=== PATIENT | male | born 1970 | race Caucasian/White ===

== ENCOUNTER 2017-01-29 21:23 | Emergency (ER) | payer SELFPAY ==
[~2017-01-29 21:23] MED LIST: OFLO1DRO8 RIGHT EYE
[2017-01-29 21:42] VITALS: BP 154/93; PULSE 76; RESP 20; TEMP 98.7; O2SAT 93
--- NOTE | 2017-01-30 00:39 | PD ---
HPI Chief Complaint: Injury Time Seen by Provider: 00:38 Travel History International Travel<30 days: No Contact w/Intl Traveler<30days: No Traveled to known affect area: No History of Present Illness HPI 26-year-old male presents to the emergency department for complaint of injury to his right index finger. Patient states he was lifting concrete at 10 AM and has right index finger was crushed need the concrete. Patient has subsequently developed bruising underneath the nail. Patient states pain is throbbing and constant and he is unable to get relief from the fingernail pain. Patient denies other injury. Immunizations are current. Patient is not diabetic. Patient is right-handed. PFSH Past Medical History Narrative Medical Negative past medical history negative surgical history tobacco use positive nursing notes reviewed Diminished Hearing: No Influenza Vaccination: No Past Surgical History Surgical History: No Previous Surgery Social History Alcohol Use: No Tobacco Use: Yes (1 PPD) Substance Use: No Allergies-Medications (Allergen,Severity, Reaction): Coded Allergies: Lortab (Verified Allergy, Unknown, nausea, 01/29/17) Motrin (Verified Allergy, Unknown, nausea, 01/29/17) Tylenol (Verified Allergy, Unknown, nausea, 01/29/17) Ultram (Verified Allergy, Unknown, nausea, 01/29/17) Reported Meds & Prescriptions Reported Meds & Active Scripts Active No Active Prescriptions or Reported Medications Review of Systems Musculoskeletal: Positive: Pain (pain in the right index finger) Hematologic/Lymphatic: No: Easy Bruising Physical Exam Narrative Gen. well-developed well-nourished male in no acute distress no respiratory distress Extremity: Attention right index finger with subungual hematoma no deformity range of motion intact sensory exam intact capillary refill brisk and less than 2 seconds thumb apposition intact Data Data Last Documented VS Vital Signs Date Time Temp Pulse Resp B/P Pulse Ox O2 Delivery O2 Flow Rate FiO2 01/29/17 23:51 Room Air 01/29/17 21:42 98.7 76 20 154/93 93 Orders Finger (Aml2les) (01/30/17 ) [facility] Medical Decision Making Medical Screen Exam Complete: Yes Emergency Medical Condition: Yes Medical Record Reviewed: Yes Interpretation(s) right index finger xr: No acute bony injury Differential Diagnosis Subungual hematoma crush injury tuft fracture neurovascular tendon injury Narrative Course Imaging study reveals no bony abnormality; after digit was cleansed with Betadine and electrocautery trephination was performed with relief of pain associated with subungual hematoma. Patient stable for outpatient management. Diagnosis Primary Impression: Subungual hematoma of finger of right hand Qualified Code: S60.10XA - Subungual hematoma of finger of right hand, initial encounter Departure Forms: Tests/Procedures, Work Release Special Instructions: no use right hand/no work x 2 days Additional Instructions: Keep site clean and dry Return to the emergency department for any concerns or change in condition May use ice intermittently to areas soft tissue swelling for the first 12-24 hours Follow-up with primary care provider Scripts No Active Prescriptions or Reported Meds Disposition: DISCHARGE HOME Condition: Stable Nataliia Alvaraod MD Jan 30, 2017 00:39
--- NOTE | 2017-01-30 01:05 | RADHPO ---
EXAM DATE/TIME: 01/30/2017 00:48 [place] COMPARISON: No previous studies available for comparison. INDICATIONS : Crush injury to distal second finger. Pain and swelling at nailbed. MEDICAL HISTORY : None. SURGICAL HISTORY : None. ENCOUNTER: Initial ACUITY: 1 day PAIN SCORE: 7/10 LOCATION: Right upper extremity FINDINGS: Examination of the second digit of the right hand demonstrates no evidence of fracture or dislocation . No radiopaque foreign bodies are seen. The soft tissues are intact. CONCLUSION: No acute disease. Darell Lion MD on January 30, 2017 at 1:02 Board Certified Radiologist. This report was verified electronically.
== END 2017-01-30 01:50 | disposition home or self-care (01) ==
LOC: PHED 21:23 → PHEFT 01-30 01:50
DX: S60.021A Contusion of right index finger without damage to nail, initial encounter (principal); X58.XXXA Exposure to other specified factors, initial encounter
CPT/HCPCS: 11740; 73140